=== PATIENT | male | born 1975 | race Hispanic/Latino ===

== ENCOUNTER 2018-08-15 13:47 | Emergency (ER) | payer BC ==
[2018-08-15 14:45] LABS: Absolute Lymphocytes (CBC) 1.6 K/uL (0.7-4.9); Absolute Monocytes 1.1 K/uL (0.1-1.3); Basophils % 0.4 % (0-1.3); Eosinophils % 1.4 % (0-4.4); Hematocrit 43.8 % (39.6-49.0); Lymphocytes % 13.6 % (15.3-44.8); MPV 8.3 fL (7.6-11.3); RBC Red Blood Cell Count 4.73 M/uL (4.33-5.43)
[2018-08-15] MEDS ORDERED: ONDANSETRON 4 MG/2 ML VIAL ONE (14:51)
[2018-08-15] MEDS ORDERED: NA CHLORIDE 0.9% 1,000 ML ONE (14:51)
[2018-08-15 15:04] LABS: ALT/SGPT 21 U/L (12-78); AST/SGOT 9 U/L (15-37); Albumin 3.3 g/dL (3.4-5.0); Alkaline Phosphatase 83 U/L (45-117); BUN Blood Urea Nitrogen 13 mg/dL (7-18); Bicarbonate 29 mmol/L (21-32); Bilirubin Direct 0.2 mg/dL (0-0.2); Bilirubin Total 0.5 mg/dL (0.2-1.0); Glucose Level 254 mg/dL (74-106); Lipase 210 U/L (73-393); Magnesium 1.8 mg/dL (1.8-2.4); Potassium 3.6 mmol/L (3.5-5.1); Sodium Level 137 mmol/L (136-145)
--- NOTE | 2018-08-15 15:15 | ER ---
Nurse's Notes [facility] Name: Wallace Abdi Age: 43 yrs Sex: Male : 1975 Arrival Date: 08/15/2018 Time: 13:52 Bed 26 Private MD: None, None Diagnosis: Lower abdominal pain, unspecified;Vomiting, unspecified;Diarrhea, unspecified Presentation: 08/15 14:01 Presenting complaint: Patient states: I ate at a [employer] buffet last night and had abd la1 pain, vomiting, and diarrhea all night. Transition of care: patient was not received from another setting of care. Onset of symptoms was August 15, 2018. Risk Assessment: Do you want to hurt yourself or someone else? Patient reports no desire to harm self or others. Initial Sepsis Screen: Does the patient meet any 2 criteria? No. Patient's initial sepsis screen is negative. Does the patient have a suspected source of infection? No. Patient's initial sepsis screen is negative. Care prior to arrival: None. 14:01 Method Of Arrival: Ambulatory la1 14:01 Acuity: UZAIR 3 la1 Historical: - Allergies: 14:00 No Known Allergies; la1 - PMHx: 14:00 Diabetes - NIDDM; la1 - Immunization history:: Adult Immunizations up to date. - Social history:: Smoking status: Patient/guardian denies using tobacco. - Ebola Screening: : No symptoms or risks identified at this time. Assessment: 15:10 Reassessment: MONI Frey at bedside speaking to patient about need for CT scan to r/o aa5 appendicitis. Pt refusing CT scan. Pt states "I will go see my PCP in [place] in about a week" . 15:15 Reassessment: Patient is alert, oriented x 3, equal unlabored respirations, skin aa5 warm/dry/pink. Vital Signs: 14:00 BP 125 / 84; Pulse 80; Resp 18; Temp 97.6; Pulse Ox 98% on R/A; Weight 88.45 kg; Height la1 5 ft. 10 in. (177.80 cm); 14:00 Body Mass Index 27.98 (88.45 kg, 177.80 cm) la1 ED Course: 13:52 Patient arrived in ED. mr 13:52 None, None is Private Physician. mr 14:00 Arm band placed on right wrist. la1 14:01 Triage completed. la1 14:10 Josafat Jones PA is PHCP. cp 14:10 Josafat Alex MD is Attending Physician. cp 14:35 Inserted saline lock: 20 gauge in right antecubital area, using aseptic technique. jp3 Blood collected. 14:35 Initial lab(s) drawn, by me, sent to lab. jp3 15:02 Basic Metabolic Panel Sent. jp3 15:02 CBC with Diff Sent. jp3 15:02 Creatinine for Radiology Sent. jp3 15:02 Hepatic Function Sent. jp3 15:02 Magnesium Sent. jp3 15:09 Note: pt refused ct exam. moni rice notified. bq Administered Medications: 14:45 Drug: Zofran 4 mg Route: IVP; Site: right antecubital; la1 14:45 Drug: NS 0.9% 1000 ml Route: IV; Rate: 1 bolus; Site: right antecubital; la1 Outcome: 15:15 Patient left the ED. aa5 15:15 AMA AMA form signed aa5 15:15 Condition: stable Signatures: Jose Felicia Reid, Ana María Maria A Patel RN RN aa5 Yousuf Perdomo RN RN la1 Josafat Jones PA PA Kolby Newman jp3 Corrections: (The following items were deleted from the chart) 15:20 15:10 Reassessment: MONI Frey at bedside speaking to patient about need for CT scan to aa5 r/o appendicitis. Pt refusing CT scan.. aa5
--- NOTE | 2018-08-15 15:15 | EDPHYS ---
Physician Documentation [facility] Name: Wallace Abdi Age: 43 yrs Sex: Male : 1975 Arrival Date: 08/15/2018 Time: 13:52 Bed 26 Private MD: None, None ED Physician Josafat Alex HPI: 08/15 14:20 This 43 yrs old Male presents to ER via Ambulatory with complaints of cp Abdominal Pain, Diarrhea. 14:20 The patient presents with abdominal pain. Onset: The symptoms/episode began/occurred cp last night. Associated signs and symptoms: Pertinent positives: diarrhea, vomiting, Pertinent negatives: blood in stools, constipation, dysuria, fever, testicular pain, vomiting blood. Historical: - Allergies: 14:00 No Known Allergies; la1 - PMHx: 14:00 Diabetes - NIDDM; la1 - Immunization history:: Adult Immunizations up to date. - Social history:: Smoking status: Patient/guardian denies using tobacco. - Ebola Screening: : No symptoms or risks identified at this time. ROS: 14:25 Constitutional: Negative for body aches, chills, fever, poor PO intake. cp 14:25 Eyes: Negative for injury, pain, redness, and discharge. cp 14:25 ENT: Negative for drainage from ear(s), ear pain, sore throat, difficulty swallowing, difficulty handling secretions. 14:25 Cardiovascular: Negative for chest pain, palpitations. 14:25 Respiratory: Negative for cough, shortness of breath, wheezing. 14:25 Abdomen/GI: Positive for abdominal pain, nausea, vomiting, and diarrhea, Negative for constipation, hematemesis, black/tarry stool, rectal bleeding. 14:25 Back: Negative for pain at rest, pain with movement, radiated pain. 14:25 : Negative for urinary symptoms, hematuria, testicular pain 14:25 Skin: Negative for cellulitis, rash. 14:25 Neuro: Negative for altered mental status, headache, weakness. 14:25 All other systems are negative. Exam: 14:30 Constitutional: The patient appears in no acute distress, alert, awake, cp non-diaphoretic, non-toxic, well developed, well nourished. 14:30 Head/Face: Normocephalic, atraumatic. cp 14:30 Eyes: Periorbital structures: appear normal, Conjunctiva: normal, no exudate, no injection, Sclera: no appreciated abnormality, Lids and lashes: appear normal, bilaterally. 14:30 ENT: External ear(s): are unremarkable, Ear canal(s): are normal, clear, TM's: are normal, no evidence of bulging, no erythema, Nose: is normal, Mouth: Lips: moist, Oral mucosa: pink and intact, moist, Posterior pharynx: is normal, airway is patent, no erythema, no exudate. 14:30 Neck: ROM/movement: is normal, is supple, without pain, no range of motions limitations, no meningismus, no nuchal rigidity. 14:30 Chest/axilla: Inspection: normal, Palpation: is normal, no crepitus, no tenderness. 14:30 Cardiovascular: Rate: normal, Rhythm: regular, Edema: is not appreciated, JVD: is not appreciated. 14:30 Respiratory: the patient does not display signs of respiratory distress, Respirations: normal, no use of accessory muscles, no retractions, no splinting, no tachypnea, labored breathing, is not present, Breath sounds: are clear throughout, no rales, no stridor, no wheezing. 14:30 Abdomen/GI: Inspection: abdomen appears normal, Bowel sounds: active, all quadrants, Palpation: soft, in all quadrants, mild abdominal tenderness, in the right lower quadrant, rebound tenderness, is not appreciated, voluntary guarding, is not appreciated, involuntary guarding, is not appreciated. 14:30 Skin: cellulitis, is not appreciated, no rash present. Vital Signs: 14:00 BP 125 / 84; Pulse 80; Resp 18; Temp 97.6; Pulse Ox 98% on R/A; Weight 88.45 kg; Height la1 5 ft. 10 in. (177.80 cm); 14:00 Body Mass Index 27.98 (88.45 kg, 177.80 cm) la1 MDM: 14:10 Patient medically screened. cp 14:30 Differential diagnosis: appendicitis, bowel obstruction, cholecystitis, Cholelithiasis, cp diverticulitis, gastritis, Pyelonephritis, Testicular Torsion, Ureterolithiasis, urinary tract infection. 15:12 Data reviewed: vital signs, nurses notes, lab test result(s). Refusal of service: The cp patient/guardian displays adequate decision making capability and despite a detailed discussion of alternatives, benefits, risks, and consequences refuses: CT Scan. 08/15 14:16 Order name: Basic Metabolic Panel cp 08/15 14:16 Order name: CBC with Diff cp 08/15 14:16 Order name: Creatinine for Radiology cp 08/15 14:16 Order name: Hepatic Function cp 08/15 14:16 Order name: Lipase cp 08/15 14:17 Order name: Magnesium cp 08/15 14:46 Order name: CBC with Automated Diff; Complete Time: 14:52 EDMS 08/15 15:02 Order name: Creatinine (Radiology Only); Complete Time: 15:12 EDMS 08/15 15:04 Order name: Basic Metabolic Panel; Complete Time: 15:12 EDMS 08/15 15:12 Interpretation: Normal except: GLUC 254. cp 08/15 15:04 Order name: Liver (Hepatic) Function; Complete Time: 15:12 EDMS 08/15 15:04 Order name: Magnesium; Complete Time: 15:12 EDMS 08/15 15:04 Order name: Lipase; Complete Time: 15:12 EDMS 08/15 14:16 Order name: IV Saline Lock; Complete Time: 14:45 cp 08/15 14:16 Order name: Labs collected and sent; Complete Time: 14:45 cp Administered Medications: 14:45 Drug: Zofran 4 mg Route: IVP; Site: right antecubital; la1 14:45 Drug: NS 0.9% 1000 ml Route: IV; Rate: 1 bolus; Site: right antecubital; la1 Disposition: 08/15/18 15:14 Patient has left against medical advice. Impression: Lower abdominal pain, unspecified, Vomiting, unspecified, Diarrhea, unspecified. - Patients states they are going to Home. - Condition is Stable. Follow up: Emergency Department; When: As needed; Reason: Worsening of condition. - Problem is new. - Symptoms are unchanged. Addendum: 08/17/2018 07:47 Co-signature as Attending Physician, Josafat Alex MD I agree with the assessment and c dominique plan of care. Signatures: Dispatcher [employer] Josafat Sheikh MD MD cha Calderon, Audri RN RN aa5 Yousuf Perdomo RN RN la1 Josafat Jones PA PA cp Corrections: (The following items were deleted from the chart) 08/15 15:15 15:14 08/15/2018 15:14 Patients has left against medical advice. Impression: Lower aa5 abdominal pain, unspecified; Vomiting, unspecified; Diarrhea, unspecified. Patient states they are going to Home. Condition is Stable. Follow up: Emergency Department; When: As needed; Reason: Worsening of condition. Problem is new. Symptoms are unchanged. cp
== END 2018-08-15 15:15 | disposition left against medical advice (07) ==
LOC: ER 13:47
DX: R10.30 Lower abdominal pain, unspecified (principal); R11.10 Vomiting, unspecified; R19.7 Diarrhea, unspecified
CPT/HCPCS: 36415; 80048; 80076; 83690; 83735; 85025; J2405; J7030